=== PATIENT | male | born 1985 | race Caucasian/White ===

== ENCOUNTER 2021-05-14 16:12 | Emergency (ER) | payer MEDICAID ==
[~2021-05-14] VITALS: Ht 175.3 cm; Wt 68.2 kg
[2021-05-14] MEDS ORDERED: AMLO10TA48 PO (16:55)
[2021-05-14] MEDS ORDERED: LISI20TA28 PO (16:55)
[2021-05-14] MEDS ORDERED: OLAN10TA3 PO (16:55)
[2021-05-14] MEDS ORDERED: GABA600T13 PO (16:55)
[2021-05-14] MEDS ORDERED: VALP250C44 PO (16:55)
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
[2021-05-14 17:09] LABS: URINE AMPHETAMINE SCREEN NEGATIVE (Neg); URINE BARBITUATE SCREEN NEGATIVE (Neg); URINE BENZODIAZEPINES SCREEN NEGATIVE (Neg); URINE CANNABINOID SCREEN NEGATIVE (Neg); URINE COCAINE SCREEN NEGATIVE (Neg); URINE METHADONE SCREEN NEGATIVE (Neg); URINE OPIATE SCREEN NEGATIVE (Neg); URINE PHENCYCLIDINE SCREEN NEGATIVE (Neg)
[2021-05-14 17:11] LABS: MEAN CORPUSCULAR HGB CONC 34.4 g/dL (33.0-36.5)
[2021-05-14 17:13] LABS: BASOPHILS # (AUTO) 0.1 X10'3 (0-0.2); BASOPHILS % (AUTO) 0.5 % (0-1); EOSINOPHILS # (AUTO) 0.3 X10'3 (0-0.9); EOSINOPHILS % (AUTO) 2.3 % (0-6); HEMATOCRIT 44.3 % (42.0-52.0); HEMOGLOBIN 15.3 g/dl (14.0-17.9); LYMPHOCYTES # (AUTO) 1.8 X10'3 (1.1-4.8); LYMPHOCYTES % (AUTO) 16.1 % (21-51); MEAN CORPUSCULAR HEMOGLOBIN 29.4 PG (27.0-31.0); MEAN CORPUSCULAR VOLUME 85.5 FL (78-98); MEAN PLATELET VOLUME 8.7 FL (7.4-10.4); MONOCYTES # (AUTO) 0.6 X10'3 (0-0.9); NEUTROPHILS # (AUTO) 8.5 X10'3 (1.8-7.7); NEUTROPHILS % (AUTO) 76.1 % (42-75); PLATELET COUNT 258 X10'3 (140-440); RED BLOOD COUNT 5.18 X10'6 (4.70-6.10); RED CELL DISTRIBUTION WIDTH 15.3 % (11.5-14.5); WHITE BLOOD COUNT 11.2 X10'3 (4.5-11.0)
[2021-05-14 17:14] LABS: ALANINE AMINOTRANSFERASE 50 U/L (12-78); ALBUMIN/GLOBULIN RATIO 1.1 (1.1-1.5); ALKALINE PHOSPHATASE 69 IU/L (46-116); ANION GAP 6 (8-16); ASPARTATE AMINO TRANSFERASE 25 U/L (10-37); BILIRUBIN,TOTAL 0.6 MG/DL (0.1-1.0); BLOOD UREA NITROGEN 8 MG/DL (7-18); BUN/CREATININE RATIO 11.3 (5.4-32.0); CALCIUM 8.6 MG/DL (8.5-10.1); CHLORIDE 100 MMOL/L (99-107); CREATININE 0.71 MG/DL (0.60-1.10); GLUCOSE 97 MG/DL (70-104); POTASSIUM 4.2 MMOL/L (3.5-5.1); SODIUM 135 MMOL/L (135-145); TOTAL PROTEIN 7.6 G/DL (6.4-8.2); eGFR > 90 ML/MIN
[2021-05-14] MEDS ORDERED: VALP250C3 PO (17:26)
[2021-05-14 17:29] LABS: ETHANOL < 0.010 GM/DL (0.0-0.010)
--- NOTE | 2021-05-14 17:41 | NUR ---
Packet sent to [facility]
--- NOTE | 2021-05-14 19:34 | NUR ---
Pt finished with dinner, pt has +SI and +AH but couldnt describe what he is hearing. Pt is currently resting in bed comfortably, no needs at this time.
--- NOTE | 2021-05-14 19:53 | NUR ---
Pt up to the bathroom, medication compliant and requested feliciano.
[2021-05-14] MEDS: olanzapine 10mg tablet PO SCH (20:00)
[2021-05-14] MEDS: gabapentin 300mg capsule PO SCH (20:00)
[2021-05-14] MEDS ORDERED: valproic acid 250mg capsule PO SCH (21:00)
[2021-05-14] MEDS ORDERED: traZODone 50mg tablet PO ONE (21:40)
[2021-05-14] MEDS ORDERED: traZODone 50mg tablet PO SCH (21:40)
--- NOTE | 2021-05-14 21:50 | NUR ---
Pt was somewhat restless, having a hard time falling asleep, 100MG trazadone ordered and given with good effect.
--- NOTE | 2021-05-15 00:30 | NUR ---
Pt appears to be sleeping.
--- NOTE | 2021-05-15 03:15 | NUR ---
The pt appears to be sleeping, no distress noted.
--- NOTE | 2021-05-15 07:27 | NUR ---
Pt resting comfortably on right side, no distress noted.
[2021-05-15] MEDS: lisinopril 20mg tablet PO SCH (08:12)
[2021-05-15] MEDS: amLODIPine 5mg tablet PO SCH (08:12)
[2021-05-15] MEDS: gabapentin 300mg capsule PO SCH ×3 (08:13→20:37)
[2021-05-15] MEDS ORDERED: acetaminophen 325mg tablet PO ONE (09:20)
--- NOTE | 2021-05-15 09:30 | NUR ---
One on one to assess mental health symptoms. Pt was compliant with care and medication. Pt ate 100% of his breakfast. Pt c/o headache 10/31. Tylenol administered with effect. Pt was polite and no agitation noted during assessment. Pt endorses auditory hallucinations telling him to self harm. Pt states when he was at [facility] the voices were talking about "consective years and row," which is why he was so agitated. Asked if he had charges pending pt said "no." Pt reports depression 04/02. Pt denies suicidal/homicidal thoughts.
--- NOTE | 2021-05-15 11:35 | NUR ---
Pt sleeping comfortably, respirations even and unlabored.
--- NOTE | 2021-05-15 13:20 | NUR ---
Pt awake in his room, presents restless. Pt reports "feeling anxious." Received order for Ativan 1mg. Will continue to monitor. Noted pt refused his Depakene medicationi at [facility]. When asked why pt stated "it give me the shakes, that's why I didn't want to take it." Pt has been calm, cooperative.
[2021-05-15] MEDS ORDERED: LORazepam 1 MG tablet PO ONE (13:35)
--- NOTE | 2021-05-15 14:14 | NUR ---
Pt resting comfortably in bed, respirations even and unlabored. PRN was effective.
--- NOTE | 2021-05-15 15:36 | NUR ---
Pt resting comfortably, respirations even and unlabored.
--- NOTE | 2021-05-15 17:35 | NUR ---
Pt continues to sleep comfortably, respirations even and unlabored. Pt was up to void then returned to his bed.
[2021-05-15] MEDS: olanzapine 10mg tablet PO SCH (20:37)
--- NOTE | 2021-05-15 21:12 | NUR ---
Pt took HS med and ate a snack. Pt is sleeping at this time.
--- NOTE | 2021-05-16 05:38 | NUR ---
Awake lying quietly in bed.
--- NOTE | 2021-05-16 07:26 | NUR ---
Pt sleeping in supine position, no distress noted. Respirations even and unlabored.
[2021-05-16] MEDS: amLODIPine 5mg tablet PO SCH (08:07)
[2021-05-16] MEDS: gabapentin 300mg capsule PO SCH ×3 (08:07→20:20)
[2021-05-16] MEDS: lisinopril 20mg tablet PO SCH (08:08)
[2021-05-16] MEDS ORDERED: diphenhydrAMINE 50 mg/ml inj IM ONE (08:40)
[2021-05-16] MEDS ORDERED: LORazepam 2 mg/ml vial ONE (08:54)
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
--- NOTE | 2021-05-16 09:27 | NUR ---
Pt resting comfortably , respirations even and unlabored.
[2021-05-16] MEDS: LORazepam 2 mg/ml vial IM ONE (09:30)
--- NOTE | 2021-05-16 09:38 | NUR ---
Pt lying in low luther's position, respirations even and unlabored. Pt aroused to name, when asked how he was feeling pt stated "fine."
--- NOTE | 2021-05-16 11:18 | NUR ---
Pt up to the bathroom, gait steady. Pt asked for juice and crackers. Snack provided.
[2021-05-16] MEDS: OLANZapine 5mg rapidly disint. tablet PO SCH (13:05)
--- NOTE | 2021-05-16 13:12 | NUR ---
Pt sitting at bedside eating lunch. Pt was compliant with scheduled medications. Pt is calm.
--- NOTE | 2021-05-16 15:46 | NUR ---
Pt up to bathroom and asking for something to eat. Pt appears to be restless, will administer PRN Ativan. Snack given to pt.
[2021-05-16] MEDS: LORazepam 1 MG tablet PO PRN ×2 (15:49→20:20)
--- NOTE | 2021-05-16 15:52 | NUR ---
Administered PRN Ativan 1mg PO. Pt restless, awake lying on his bed.
[2021-05-16] MEDS ORDERED: ziprasidone IM 20mg inj **IM only IM ONE (16:10)
--- NOTE | 2021-05-16 16:23 | NUR ---
Pt continued to escalate, tossing in bed. "I just want the fuck out of here!" "I don't want no help!" "I need to get back to [facility]!" Unable to verbal deescalate pt. Received order for IM Geodon 10mg. Pt calmly laid down and allowed injection.
--- NOTE | 2021-05-16 19:37 | NUR ---
Pt ate dinner, requested a sandwhich, denies SI, states he hears voices but he tries to ignore them and drown them out. PT currently calm and cooperative, currently resting in bed.
[2021-05-16] MEDS ORDERED: OLANZAPINE 5 MG TABLET PO SCH (21:00)
--- NOTE | 2021-05-16 22:00 | NUR ---
Pt is currently sleeping.
--- NOTE | 2021-05-17 01:04 | NUR ---
Pt appears to be sleeping, no distress noted.
--- NOTE | 2021-05-17 03:24 | NUR ---
Pt appears to be sleeping, no distress noted.
--- NOTE | 2021-05-17 05:05 | NUR ---
Pt appears to be sleeping.
--- NOTE | 2021-05-17 07:04 | NUR ---
Assumed care of patient, pt. laying on his left side with covers pulled over his head sleeping at this time. RR are even and unlabored.
[2021-05-17] MEDS ORDERED: OLANZapine 5mg rapidly disint. tablet PO SCH (08:00)
--- NOTE | 2021-05-17 08:01 | NUR ---
Pt. awoke and ambulated to the BR independently. He is sitting up eating breakfast at this time.
[2021-05-17] MEDS: gabapentin 300mg capsule PO SCH (08:20)
[2021-05-17] MEDS: lisinopril 20mg tablet PO SCH (08:20)
[2021-05-17] MEDS: OLANZapine 5mg rapidly disint. tablet PO SCH (08:21)
[2021-05-17] MEDS: amLODIPine 5mg tablet PO SCH (08:21)
[2021-05-17] MEDS: LORazepam 1 MG tablet PO PRN (09:07)
--- NOTE | 2021-05-17 09:13 | NUR ---
Pt. restlessly pacing in his room and going to the BR multiple times. Offered PRN Ativan and pt. took with some encouragement. He states restlessly that he wants to get a ride back up to [facility] where he is from because he has friends and family there. [facility], and pt. is aware of this.
--- NOTE | 2021-05-17 10:00 | NUR ---
Pt. demanding to leave at this time, per [facility] "Let pt. walk out, he is highly dangerous." Security was called to monitor pt. and this underwriter solicitation director went to talk to YOCASTA and Dr. Anne. Pt's belongings were given to him while this underwriter solicitation director was gone per security. Dr. Anne and this underwriter solicitation director returned to talk to pt. who was pacing restlessly and fully dressed. Dr. Anne then went to talk to [facility] to see if pt's hold was being release. In the meantime, pt. walked out the back exit door followed by security. YOCASTA was notified and Briseida was notified.
[2021-05-17 10:44] VITALS: BP 134/84
== END 2021-05-17 10:49 ==
LOC: ER 16:12
DX: R45.851 Suicidal ideations (principal); Z20.822 Contact with and (suspected) exposure to COVID-19; R51.9 Headache, unspecified; M54.2 Cervicalgia; F31.9 Bipolar disorder, unspecified; F17.200 Nicotine dependence, unspecified, uncomplicated; F15.90 Other stimulant use, unspecified, uncomplicated; Z72.89 Other problems related to lifestyle; Z88.8 Allergy status to other drugs, medicaments and biological substances; Z79.899 Other long term (current) drug therapy
CPT/HCPCS: 80053; 80305; 80320; 85025; 87635; 96372; 99285; C9803; J2060

== ENCOUNTER 2021-05-23 13:21 | Emergency (ER) | payer MEDICAID ==
[~2021-05-23] VITALS: Ht 175.3 cm; Wt 75.0 kg
[~2021-05-23 13:21] MED LIST: AMLO10TA48 PO; GABA600T13 PO; LISI20TA28 PO; OLAN10TA3 PO; VALP250C3 PO
[2021-05-23 14:42] LABS: BASOPHILS # (AUTO) 0.1 X10'3 (0-0.2); BASOPHILS % (AUTO) 0.7 % (0-1); EOSINOPHILS # (AUTO) 0.2 X10'3 (0-0.9); EOSINOPHILS % (AUTO) 1.9 % (0-6); HEMATOCRIT 44.8 % (42.0-52.0); HEMOGLOBIN 15.4 g/dl (14.0-17.9); LYMPHOCYTES # (AUTO) 1.5 X10'3 (1.1-4.8); LYMPHOCYTES % (AUTO) 17.7 % (21-51); MEAN CORPUSCULAR HEMOGLOBIN 29.5 PG (27.0-31.0); MEAN CORPUSCULAR HGB CONC 34.3 g/dL (33.0-36.5); MEAN PLATELET VOLUME 8.5 FL (7.4-10.4); MONOCYTES # (AUTO) 0.7 X10'3 (0-0.9); MONOCYTES % (AUTO) 7.9 % (2-12); NEUTROPHILS # (AUTO) 6.2 X10'3 (1.8-7.7); NEUTROPHILS % (AUTO) 71.8 % (42-75); PLATELET COUNT 259 X10'3 (140-440); RED CELL DISTRIBUTION WIDTH 15.4 % (11.5-14.5); WHITE BLOOD COUNT 8.6 X10'3 (4.5-11.0)
--- NOTE | 2021-05-23 14:43 | NUR ---
PT'S RN SECURITY'S PHONE NUMBER IS [phone]
[2021-05-23 14:55] LABS: ALANINE AMINOTRANSFERASE 59 U/L (12-78); ALBUMIN 3.9 G/DL (3.4-5.0); ALKALINE PHOSPHATASE 64 IU/L (46-116); ANION GAP 9 (8-16); ASPARTATE AMINO TRANSFERASE 21 U/L (10-37); BILIRUBIN,TOTAL 0.8 MG/DL (0.1-1.0); BLOOD UREA NITROGEN 16 MG/DL (7-18); BUN/CREATININE RATIO 19.5 (5.4-32.0); CALCIUM 8.5 MG/DL (8.5-10.1); CHLORIDE 103 MMOL/L (99-107); CREATININE 0.82 MG/DL (0.60-1.10); GLUCOSE 110 MG/DL (70-104); POTASSIUM 3.7 MMOL/L (3.5-5.1); SODIUM 139 MMOL/L (135-145); TOTAL CARBON DIOXIDE 26.6 MMOL/L (24-32); TOTAL PROTEIN 7.7 G/DL (6.4-8.2); eGFR > 90 ML/MIN
[2021-05-23 15:09] LABS: ETHANOL < 0.010 GM/DL (0.0-0.010)
--- NOTE | 2021-05-23 18:33 | NUR ---
PACKET FAXED TO [facility]
--- NOTE | 2021-05-23 19:09 | NUR ---
GAVE REPORT TO OVERFLOW. PT REFUSES TO PROVIDE A URINE SAMPLE AT PRESENT. HE IS LYING DOWN IN POSITION WITH HIS HOODIE ON.
--- NOTE | 2021-05-23 19:15 | NUR ---
Patient ambulated to room 21 from ER. Belongings enventoried, patient provided snack, and went to bed.
[2021-05-23 19:58] LABS: CLARITY,URINE CLEAR (Clear); COLOR,URINE YELLOW (Yellow); GLUCOSE, URINE NEGATIVE (Neg); KETONES,URINE NEGATIVE (Neg); LEUKOCYTE ESTERASE ,URINE NEGATIVE (Neg); NITRITES, URINE NEGATIVE (Neg); OCCULT BLOOD,URINE NEGATIVE (Neg); PH,URINE 5.5 (4.8-8.0); PROTEIN,URINE NEGATIVE (Neg); UROBILINOGEN,URINE 0.2 E.U/dL (0.2-1.0)
[2021-05-23 19:59] LABS: UA COLLECTION TYPE NON-SPECIFIED
[2021-05-23 20:20] LABS: URINE AMPHETAMINE SCREEN NEGATIVE (Neg); URINE BARBITUATE SCREEN NEGATIVE (Neg); URINE BENZODIAZEPINES SCREEN NEGATIVE (Neg); URINE CANNABINOID SCREEN POSITIVE (Neg); URINE COCAINE SCREEN NEGATIVE (Neg); URINE METHADONE SCREEN NEGATIVE (Neg); URINE OPIATE SCREEN NEGATIVE (Neg); URINE PHENCYCLIDINE SCREEN NEGATIVE (Neg)
[2021-05-23] MEDS ORDERED: valproic acid 250mg capsule PO SCH (21:18)
[2021-05-23] MEDS ORDERED: olanzapine 10mg tablet PO SCH (21:18)
--- NOTE | 2021-05-23 21:39 | NUR ---
Patient accepted medication without incident. He is now lying in semi-fowlers position with hoodie over his head, almost asleep.
--- NOTE | 2021-05-23 22:28 | NUR ---
Patient appears to be sleeping in supine position. reathing even and unlabored. No s/s of distress.
--- NOTE | 2021-05-24 00:48 | NUR ---
Patient asleep on his right side. RR even and unlabored. No s/s of distress.
--- NOTE | 2021-05-24 03:15 | NUR ---
Patient contiues to sleep. He is now in supine position. RR even and unlabored. there are no signs of distress.
--- NOTE | 2021-05-24 04:48 | NUR ---
Patient asleep in supine position. Breathing unlabored. No s/s of distress.
--- NOTE | 2021-05-24 05:52 | NUR ---
Patient still sleeping. No distress noted.
--- NOTE | 2021-05-24 07:00 | NUR ---
Pt. asleep in bed.
[2021-05-24] MEDS ORDERED: amLODIPine 5mg tablet PO SCH (08:00)
[2021-05-24] MEDS ORDERED: lisinopril 20mg tablet PO SCH (08:00)
[2021-05-24] MEDS: gabapentin 300mg capsule PO SCH ×2 (08:46→13:10)
--- NOTE | 2021-05-24 09:00 | NUR ---
Pt. ate breakfast and took medications went back to sleep.
--- NOTE | 2021-05-24 11:00 | NUR ---
1:1 done at bedside. Pt. reports SI without a plan. Pt. reports previous SA "a long time ago when I was in [facility]". Pt. denies HI, but reports hearing voices. When asked what the voices say, pt. states, "stuff". Pt. denies VH. Pt. reports he is here because the police brought him here. Pt. offers minimal information during 1:1. Pt. assessed by gia and pt.'s 5150 renewed.
--- NOTE | 2021-05-24 13:15 | NUR ---
After eating his lunch pt. requested more food and given a turkey sandwich.
--- NOTE | 2021-05-24 14:00 | NUR ---
Pt. asked for another turkey sandwich, but informed there were none more. Pt. then became extremely agitated, swearing loudly at female staff and calling her profanities. Pt. became delusional and paranoid, stating, "You guys are witholding sandwich from me... This is [place]'s fault, it's his fault". Security called.
[2021-05-24] MEDS ORDERED: LORazepam 1 MG tablet PO ONE (14:10)
[2021-05-24] MEDS ORDERED: OLANZapine 2.5MG tablet PO ONE (14:10)
--- NOTE | 2021-05-24 14:15 | NUR ---
RN received order for Zyprexa 10mg, and Ativan 2mg po. Pt. took medications willingly with security back up.
--- NOTE | 2021-05-24 16:09 | NUR ---
Pt. eventually calmed down after he received more snacks. Pt. now sleeping.
--- NOTE | 2021-05-24 19:00 | NUR ---
Dr. Small is accepting physician at [facility]. Pt. accepted at [id number]
[2021-05-24 19:07] VITALS: BP 154/90
== END 2021-05-24 17:00 ==
LOC: ER 13:21
DX: R45.851 Suicidal ideations (principal); Z20.822 Contact with and (suspected) exposure to COVID-19; F31.9 Bipolar disorder, unspecified; F15.90 Other stimulant use, unspecified, uncomplicated; Z72.89 Other problems related to lifestyle; Z88.8 Allergy status to other drugs, medicaments and biological substances; Z79.899 Other long term (current) drug therapy
CPT/HCPCS: 36415; 80053; 80305; 80320; 81003; 84443; 85025; 87635; 99285; C9803